=== PATIENT | female | born 1965 | race American Indian/Alaskan Native ===

== ENCOUNTER 2018-05-13 12:43 | Emergency (ER) | payer SELFPAY ==
[2018-05-13] MEDS ORDERED: ASPIRIN PO ONE (13:20)
[2018-05-13] MEDS ORDERED: NORCO 7.5/325 PO ONE (13:45)
[2018-05-13 14:06] LABS: Basophils % (Auto) 0.5 % (0.0-1.8); Eosinophils # (Auto) 0.2 K/mm3 (0.0-0.4); Eosinophils % (Auto) 3.8 % (0.0-4.3); Hematocrit 35.9 % (30.3-42.9); Hemoglobin 11.3 gm/dl (10.1-14.3); Lymphocytes # (Auto) 2.9 K/mm3 (1.2-5.4); Lymphocytes % (Auto) 46.1 % (13.4-35.0); Mean Corpuscular HGB Conc 31 % (30-34); Mean Corpuscular Volume 73 fl (79-97); Monocytes # (Auto) 0.6 K/mm3 (0.0-0.8); Platelet Count 242 K/mm3 (140-440); Red Blood Count 4.93 M/mm3 (3.65-5.03); Red Cell Distribution Width 17.4 % (13.2-15.2)
[2018-05-13 14:13] LABS: Mean Corpuscular Hemoglobin 23 pg (28-32)
[2018-05-13 14:22] LABS: BUN/Creatinine Ratio 23; Blood Urea Nitrogen 16 mg/dL (7-17); Calcium 9.3 mg/dL (8.4-10.2); Hemolysis Index 25
--- NOTE | 2018-05-13 16:15 | XRay Report ---
FINAL REPORT EXAM: XR RIBS UNI W PA CHEST 3+V LT HISTORY: cp and left sided rib pain after fall TECHNIQUE: PA view of the chest and oblique views left ribs Comparison: None FINDINGS: There is prominence of the interstitial markings in both lungs with peribronchial thickening, acute versus chronic. There is no evidence of focal infiltrate, pneumothorax or pleural fluid collection. The cardiomediastinal silhouette is normal in appearance. The bony structures are unremarkable. There is no plain film evidence of rib fracture. IMPRESSION: 1. Prominence of the interstitial markings in both lungs with peribronchial thickening. Acute versus chronic. 2. No evidence of fracture.
[2018-05-13 17:23] VITALS: BP 129/55
--- NOTE | 2018-05-13 17:27 | Emergency Department Report ---
ED Chest Pain HPI - General Chief Complaint: Syncope Stated Complaint: CHEST PAIN Time Seen by Provider: 05/13/18 13:39 Source: patient, EMS Mode of arrival: Stretcher Limitations: No Limitations - History of Present Illness Initial Comments: Patient is a 52-year-old female who does heavy lifting at work and was had pain in the left chest for approximately 3 weeks. Patient states the pain is in the left upper chest and back it hurts worse when she is moving. Patient states that she did fall approximately a week and a half ago but states the pain was present on this side before the fall. Patient did have some mild dizziness today but denies any loss of consciousness. The triage note states that the patient had a syncopal episode wished versus possible seizure but the patient is adamantly denies this. Patient states there is no cough cold congestion or shortness of breath associated with chest pain. Patient states the pain is at its worst 10 out of 10 and is worse with movement better with rest. While the patient is sitting still as we talked patient is pain-free. Patient is only 70 pain again when she moves. Severity scale (0 -10): 10 - Related Data Previous Rx's Medication Instructions Recorded Last Taken Type HYDROcodone/APAP 5-325 [[place] 1 each PO Q4HR PRN #12 tablet 05/13/18 Unknown Rx 5/325] Ibuprofen [Motrin] 800 mg PO Q8HR PRN #20 tablet 05/13/18 Unknown Rx methOCARBAMOL [Robaxin TAB] 500 mg PO Q6H PRN #15 tablet 05/13/18 Unknown Rx Allergies Allergy/AdvReac Type Severity Reaction Status Date / Time No Known Allergies Allergy Unverified 05/13/18 13:18 Heart Score - HEART Score History: Slightly suspicious EKG: Normal Age: 45-65 Risk factors: No known risk factors Troponin: < normal limit HEART Score: 1 ED Review of Systems ROS: Stated complaint: CHEST PAIN Other details as noted in HPI Comment: All other systems reviewed and negative ED Past Medical Hx - Past Medical History Previous Medical History?: Yes Hx Hypertension: Yes Hx Seizures: Yes - Social History Smoking Status: Unknown if ever smoked Substance Use Type: Alcohol - Medications Home Medications: Home Medications Medication Instructions Recorded Confirmed Last Taken Type HYDROcodone/APAP 5-325 [[place] 1 each PO Q4HR PRN #12 tablet 05/13/18 Unknown Rx 5/325] Ibuprofen [Motrin] 800 mg PO Q8HR PRN #20 tablet 05/13/18 Unknown Rx methOCARBAMOL [Robaxin TAB] 500 mg PO Q6H PRN #15 tablet 05/13/18 Unknown Rx ED Physical Exam - General Limitations: No Limitations General appearance: alert, in no apparent distress - Head Head exam: Present: atraumatic, normocephalic - Eye Eye exam: Present: normal appearance - ENT ENT exam: Present: mucous membranes moist - Neck Neck exam: Present: normal inspection - Respiratory Respiratory exam: Present: normal lung sounds bilaterally, chest wall tenderness (LEFT SIDED). Absent: respiratory distress, wheezes, rales, rhonchi - Cardiovascular Cardiovascular Exam: Present: regular rate, normal rhythm. Absent: systolic murmur, diastolic murmur, rubs, gallop - GI/Abdominal GI/Abdominal exam: Present: soft, normal bowel sounds. Absent: distended, tenderness, guarding, rebound - Extremities Exam Extremities exam: Present: normal inspection - Back Exam Back exam: Present: normal inspection - Neurological Exam Neurological exam: Present: alert, oriented X3 - Psychiatric Psychiatric exam: Present: normal affect, normal mood - Skin Skin exam: Present: warm, dry, intact, normal color. Absent: rash ED Course Vital Signs 05/13/18 05/13/18 05/13/18 13:12 15:07 16:00 Temperature 98.6 F Pulse Rate 63 55 L 61 Respiratory 18 18 17 Rate Blood Pressure 116/75 Blood Pressure 114/81 125/86 [Right] O2 Sat by Pulse 99 98 98 Oximetry ED Medical Decision Making - Lab Data Result diagrams: 05/13/18 13:29 05/13/18 13:29 Labs 05/13/18 05/13/18 05/13/18 13:29 13:29 16:02 WBC 6.4 RBC 4.93 Hgb 11.3 Hct 35.9 MCV 73 L MCH 23 L MCHC 31 RDW 17.4 H Plt Count 242 Lymph % (Auto) 46.1 H [place] % (Auto) 9.0 H Eos % (Auto) 3.8 Baso % (Auto) 0.5 Lymph # 2.9 [place] # 0.6 Eos # 0.2 Baso # 0.0 Seg Neutrophils % 40.6 Seg Neutrophils # 2.6 Sodium 135 L Potassium 3.5 L Chloride 105.3 Carbon Dioxide 16 L Anion Gap 17 BUN 16 Creatinine 0.7 Estimated GFR > 60 BUN/Creatinine Ratio 23 Glucose 84 Calcium 9.3 Troponin T < 0.010 < 0.010 - EKG Data -: EKG Interpreted by Me - EKG Data 05/13/18 EKG shows a sinus rhythm rate of 65 normal axis normal intervals and no ST segment elevations or depressions there are Q waves present in the septal leads our interpretation 1310 - Radiology Data Chest x-ray shows no acute process - Medical Decision Making Patient is a 52-year-old [place] female who has pain in the left chest and back with movement. Patient does do heavy lifting at work. Patient does not have a cough cold congestion chest x-ray is negative for pneumonia. Patient is 100% on room air and is not tachycardic making a PE less likely. Patient also has no pleuritic chest pain. Patient has 2 negative troponins here in emergency department ruling out an acute MO. Patient be discharged home with instructions for costochondritis and be given meds for symptomatic relief. Critical care attestation.: If time is entered above; I have spent that time in minutes in the direct care of this critically ill patient, excluding procedure time. ED Disposition Clinical Impression: Atypical chest pain Disposition: DC-01 TO HOME OR SELFCARE Is pt being admited?: No Does the pt Need Aspirin: No Condition: Stable Instructions: Chest Pain (ED), Costochondritis (ED) Referrals: PRIMARY CARE, [Primary Care Provider] - 3-5 Days Forms: Work/School Release Form(ED) Time of Disposition: 17:33
== END 2018-05-13 17:38 | disposition home or self-care (01) ==
LOC: ED 12:43
DX: R07.89 Other chest pain (principal); R42 Dizziness and giddiness; I10 Essential (primary) hypertension
CPT/HCPCS: 36415; 80048; 84484; 85025; 93005; 93010